=== PATIENT | female | born 1950 | race Caucasian/White ===

== ENCOUNTER 2021-08-19 17:22 | Emergency (ER) | payer OTHER ==
[2021-08-19 18:30] LABS: Absolute Lymphocytes (CBC) 1.3 K/uL (0.7-4.9); Basophils % 0.9 % (0-1.3); Lymphocytes % 34.2 % (15.3-44.8); MPV 7.9 fL (7.6-11.3); RBC Red Blood Cell Count 4.79 M/uL (3.86-4.86)
[2021-08-19 18:32] LABS: Protime INR 1.03
[2021-08-19 18:47] LABS: Albumin 3.4 g/dL (3.4-5.0); Bilirubin Direct 0.1 mg/dL (0-0.2); Bilirubin Total 0.4 mg/dL (0.2-1.0); Potassium 3.8 mmol/L (3.5-5.1)
--- NOTE | 2021-08-19 19:23 | RAD REPORT ---
EXAM DESCRIPTION: RAD - Chest Single View - 08/19/2021 6:38 pm CLINICAL HISTORY: COUGH COMPARISON: No comparisons FINDINGS: Lines: None. Lungs: No evidence of edema or pneumonia. Pleural: No significant pleural effusions or pneumothorax. Cardiac: The heart size is within normal limits. Bones: No acute fractures. Other: IMPRESSION: No acute cardiopulmonary disease.
--- NOTE | 2021-08-19 19:45 | RAD REPORT ---
EXAM DESCRIPTION: CTAbdomen Pelvis W Contrast - 08/19/2021 7:31 pm CLINICAL HISTORY: . Abd pain;Vaginal bleeding COMPARISON: <Comparisons> TECHNIQUE: Biphasic CT imaging of the abdomen and pelvis was performed with 100 ml non-ionic IV cont rast. All CT scans are performed using dose optimization technique as appropriate and may include automated exposure control or mA/KV adjustment according to patient size. FINDINGS: Lower chest: No acute abnormality. Small hiatal hernia. Liver: No acute abnormality or suspicious lesions. Biliary: Extrahepatic biliary ductal dilatation likely related to the postcholecystectomy state. Chol ecystectomy. Stomach: No significant focal abnormality. Duodenum: No significant focal abnormality. Pancreas: No significant abnormality. Spleen: No significant abnormality. Adrenal: No suspicious lesions. Kidney/ureter: No hydronephrosis. No renal calculi. Retroperitoneum: No retroperitoneal adenopathy. Vascular: No aneurysm. Bowel: Wall thickening involving the ascending and transverse colon to about the level of the splenic flexure.. Diverticulosis. No evidence of acute diverticulitis. Peritoneum: No ascites or free air. Bladder: Trace gas within the bladder. Reproductive: No adnexal masses. Bones: No acute fracture. Other: n/a IMPRESSION: Colitis involving the ascending and transverse colon. No bowel obstruction. The differen tial includes infectious and inflammatory etiologies primarily. Trace bladder gas may be from instrumentation or infection. Correlate with urinalysis.
[2021-08-19] MEDS ORDERED: NA CHLORIDE 0.9% 100 ML ONE (21:55)
[2021-08-19] MEDS ORDERED: CIPROFLOXACIN 400mg IV 400 MG/200 ML BAG IV ONE (21:55)
[2021-08-19] MEDS ORDERED: CIPROFLOXACIN HCL 500 MG TAB ONE (22:00)
[2021-08-19] MEDS ORDERED: METRONIDAZOLE 500mg IVPB 500 MG/100 ML BAG IV ONE (22:00)
--- NOTE | 2021-08-19 23:49 | EDPHYS ---
Physician Documentation [facility] Name: Binh Lau Age: 71 yrs Sex: Female : 1950 Arrival Date: 08/19/2021 Time: 17:33 Bed 4 Private MD: ED Physician Burke Olmedo HPI: 08/19 18:09 This 71 yrs old Female presents to ER via Ambulatory with complaints of pm1 Cough, Vaginal Bleeding. 18:09 The patient or guardian reports cough, with no sputum. Onset: The symptoms/episode pm1 began/occurred 6 day(s) ago. Severity of symptoms: in the emergency department the symptoms are unchanged. Modifying factors: The symptoms are alleviated by nothing, the symptoms are aggravated by nothing. Associated signs and symptoms: Pertinent positives: Body aches. Vaginal bleeding for the past 3 weeks, Pertinent negatives: fever. The patient has not experienced similar symptoms in the past. The patient has not recently seen a physician. Patient present in the ER with her for cough and body aches. Patient received 2 doses of covid vaccination. Historical: - Allergies: 17:48 No Known Allergies; hb - Immunization history:: Client reports receiving the 2nd dose of the Covid vaccine. - Social history:: Smoking status: Patient denies any tobacco usage or history of. ROS: 18:09 Eyes: Negative for injury, pain, redness, and discharge, ENT: Negative for injury, pm1 pain, and discharge, Cardiovascular: Negative for chest pain, palpitations, and edema. 18:09 Abdomen/GI: Negative for abdominal pain, nausea, vomiting, diarrhea, and constipation, Back: Negative for injury and pain. 18:09 MS/Extremity: Negative for injury and deformity, Skin: Negative for injury, rash, and discoloration, Neuro: Negative for headache, weakness, numbness, tingling, and seizure. 18:09 Constitutional: Positive for body aches, Negative for poor PO intake. 18:09 Respiratory: Positive for cough, Negative for shortness of breath. 18:09 : Positive for vaginal bleeding, Negative for urinary symptoms. 18:09 All other systems are negative. Exam: 18:09 Constitutional: This is a well developed, well nourished patient who is awake, alert, pm1 and in no acute distress. Head/Face: Normocephalic, atraumatic. 18:09 Back: No spinal tenderness. No costovertebral tenderness. Full range of motion. Skin: Warm, dry with normal turgor. Normal color with no rashes, no lesions, and no evidence of cellulitis. MS/ Extremity: Pulses equal, no cyanosis. Neurovascular intact. Full, normal range of motion. 18:09 Cardiovascular: Exam negative for acute changes, Rate: normal, Rhythm: regular, Pulses: no pulse deficits are appreciated. 18:09 Respiratory: Exam negative for acute changes, respiratory distress, shortness of breath, Breath sounds: are clear throughout. 18:09 Abdomen/GI: Inspection: abdomen appears normal, Palpation: soft, in all quadrants, mild abdominal tenderness, in the left lower quadrant. 18:09 Neuro: Exam negative for acute changes, Orientation: is normal, Mentation: is normal, Motor: is normal, moves all fours. 23:46 : Pelvic Exam: External exam: discharge, is not appreciated, Shireen RN. Patient with pm1 mild vaginal bleeding present. Vital Signs: 17:47 BP 149 / 98; Pulse 88; Resp 20; Temp 98.5(O); Pulse Ox 97% on R/A; Weight 66.68 kg; hb Height 5 ft. 3 in. (160.02 cm); Pain 3/10; 19:45 BP 146 / 72; Pulse 68; Resp 17; Temp 98.1; Pulse Ox 100% on R/A; Pain 0/10; dc2 21:45 BP 137 / 87; Pulse 81; Resp 17; Temp 97.6; Pulse Ox 99% ; Pain 0/10; dc2 22:30 BP 126 / 73; Pulse 72; Resp 18; Temp 97.9; Pulse Ox 99% ; Pain 0/10; dc2 08/20 00:00 BP 121 / 66; Pulse 69; Resp 16; Pulse Ox 95% ; Pain 0/10; dc2 00:30 BP 116 / 75; Pulse 66; Resp 16; Temp 97.8(O); Pulse Ox 95% ; Pain 0/10; dc2 01:00 BP 116 / 69; Pulse 64; Resp 17; Pulse Ox 94% ; Pain 0/10; dc2 01:30 BP 103 / 65; Pulse 62; Resp 16; Pulse Ox 99% ; Pain 0/10; dc2 08/19 17:47 Body Mass Index 26.04 (66.68 kg, 160.02 cm) hb MDM: 08/19 18:00 Patient medically screened. pm1 22:23 Data reviewed: vital signs. Data interpreted: Pulse oximetry: on room air is 100 %. pm1 Interpretation: normal. Counseling: I had a detailed discussion with the patient and/or guardian regarding: the historical points, exam findings, and any diagnostic results supporting the discharge/admit diagnosis, lab results, radiology results, the need for outpatient follow up, to return to the emergency department if symptoms worsen or persist or if there are any questions or concerns that arise at home. 08/19 18:02 Order name: COVID-19 : Document "Date of Symptom Onset" if Symptomatic. pm1 08/19 18:02 Order name: Basic Metabolic Panel pm1 08/19 18:02 Order name: CBC with Diff pm1 08/19 18:02 Order name: Hepatic Function pm1 08/19 18:02 Order name: Lipase pm1 08/19 18:02 Order name: PT-INR; Complete Time: 18:55 pm1 08/19 18:04 Order name: Basic Metabolic Panel; Complete Time: 18:55 EDMS 08/19 18:04 Order name: CBC with Automated Diff; Complete Time: 18:55 EDMS 08/19 18:04 Order name: Liver (Hepatic) Function; Complete Time: 18:55 EDMS 08/19 18:04 Order name: Lipase; Complete Time: 18:55 EDMS 08/19 18:06 Order name: Flu; Complete Time: 19:48 pm1 08/19 18:06 Order name: Strep; Complete Time: 19:40 pm1 08/19 18:02 Order name: Chest Single View XRAY; Complete Time: 19:40 pm1 08/19 18:02 Order name: IV Saline Lock; Complete Time: 18:03 pm1 08/19 18:02 Order name: Labs collected and sent; Complete Time: 18:03 pm1 08/19 18:02 Order name: CT Abd/Pelvis - IV Contrast Only; Complete Time: 19:48 pm1 08/19 19:35 Order name: Throat Culture EDMS 08/19 20:10 Order name: SARS-COV-2 RT PCR; Complete Time: 20:21 EDMS Administered Medications: 21:36 Drug: Flagyl (metroNIDAZOLE) 500 mg Volume: 100 ml; Route: IVPB; Rate: 200 ml/hr; dc2 Infused Over: 30 mins; Site: left antecubital; 22:06 Follow up: IV Status: Completed infusion; IV Intake: 100ml dc2 21:36 Drug: Cipro (ciprofloxacin) 500 mg Route: PO; dc2 22:00 Follow up: Response: No adverse reaction dc2 08/20 00:20 Drug: REGEN-COV Dose Pack 120 mg/mL-120 mg/mL (EUA) 600 mg Route: IV; Rate: calculated cw2 rate; Site: right antecubital; 01:25 Follow up: IV Status: Completed infusion; IV Intake: 250ml dc2 Disposition: 07:03 Co-signature as Attending Physician, Burke Olmedo MD I agree with the assessment and rn plan of care. Attestation: The patient's history, exam findings, diagnostics, and a summary of any interventions or procedures was reviewed in detail with Mauro Martinez NP. Disposition Summary: 08/19/21 23:49 Discharge Ordered Location: Home pm1 Problem: new pm1 Symptoms: have improved pm1 Condition: Stable pm1 Diagnosis - Abnormal uterine and vaginal bleeding, unspecified pm1 - Coronavirus infection, unspecified pm1 Followup: pm1 - With: Emergency Department - When: As needed - Reason: Worsening of condition Followup: pm1 - With: Private Physician - When: 2 - 3 days - Reason: Recheck today's complaints, Continuance of care, Re-evaluation by your physician Discharge Instructions: - Discharge Summary Sheet pm1 - Abnormal Uterine Bleeding pm1 - COVID-19 pm1 - COVID-19 Frequently Asked Questions pm1 - 10 Things You Can Do to Manage Your COVID-19 Symptoms at Home - [facility] pm1 - COVID-19: Quarantine vs. Isolation - [facility] pm1 Forms: - Medication Reconciliation Form pm1 - Thank You Letter pm1 - Antibiotic Education pm1 - Prescription Opioid Use pm1 Signatures: Dispatcher [employer] EDMS Burke Olmedo MD MD rn Marinas, Patrick, NP COMMUNITY SUPPORT ASSOCIATE pm1 Jeanne Da Silva RN RN Shireen Valle RN RN dc2 Abdirahman Liang RN RN cw2 Corrections: (The following items were deleted from the chart) 08/19 19:19 18:04 CORONAVIRUS ordered. EDMS EDMS
--- NOTE | 2021-08-19 23:49 | ER ---
Nurse's Notes [facility] Name: Binh Lau Age: 71 yrs Sex: Female : 1950 Arrival Date: 08/19/2021 Time: 17:33 Bed 4 Private MD: Diagnosis: Abnormal uterine and vaginal bleeding, unspecified;Coronavirus infection, unspecified Presentation: 08/19 17:47 Chief complaint: Productive cough, pain with cough, fatigue, and vaginal bleeding x 1 hb week. Coronavirus screen: Client presents with at least one sign or symptom that may indicate coronavirus-19. Standard/surgical mask placed on the client. Provider contacted for isolation considerations. Ebola Screen: No symptoms or risks identified at this time. Initial Sepsis Screen: Does the patient meet any 2 criteria? No. Patient's initial sepsis screen is negative. Does the patient have a suspected source of infection? No. Patient's initial sepsis screen is negative. Risk Assessment: Do you want to hurt yourself or someone else? Patient reports no desire to harm self or others. Onset of symptoms was August 12, 2021. 17:47 Method Of Arrival: Ambulatory hb 17:47 Acuity: SAADIA 3 hb Historical: - Allergies: 17:48 No Known Allergies; hb - Immunization history:: Client reports receiving the 2nd dose of the Covid vaccine. - Social history:: Smoking status: Patient denies any tobacco usage or history of. Screenin:26 Abuse screen: Denies threats or abuse. Nutritional screening: No deficits noted. ap3 Tuberculosis screening: No symptoms or risk factors identified. Fall Risk None identified. Assessment: 18:24 General: Appears in no apparent distress. Behavior is calm, cooperative. Pain: Denies ap3 pain. Neuro: Level of Consciousness is awake, alert, obeys commands, Oriented to person, place, time, situation, Moves all extremities. Gait is steady, Speech is normal. Cardiovascular: Capillary refill < 3 seconds. Respiratory: Reports cough that is productive, pain with cough Breath sounds with crackles in right upper lobe and left upper lobe. GI: Abdomen is non-distended. : Reports vaginal bleeding that is bright red, moderate flow, Denies pain. Musculoskeletal: Reports body aches. 19:15 Reassessment: Pt leave for CT scan via wheelchair. dc2 19:50 Reassessment: Pt ambulate to bathroom with steady gait and has urine cup for specimen. dc2 21:20 Reassessment: Pt states she hasn't eaten and would also like a sandwich. A sandwich and dc2 juice provided. Pt still co being very cold, temp 97.8 and have checked multiple times. Warm blanket provided with meal. No further needs at this time, call light within reach, at side . 08/20 00:25 Reassessment: Patient and/or family updated on plan of care and expected duration. Pain dc2 level reassessed. Infusion completed, pt and family instruct on monitoring for next hour and if no complications will be discharged to home. Pt tolerate well, vss. Conitnue to monitor. Vital Signs: 08/19 17:47 BP 149 / 98; Pulse 88; Resp 20; Temp 98.5(O); Pulse Ox 97% on R/A; Weight 66.68 kg; hb Height 5 ft. 3 in. (160.02 cm); Pain 3/10; 19:45 BP 146 / 72; Pulse 68; Resp 17; Temp 98.1; Pulse Ox 100% on R/A; Pain 0/10; dc2 21:45 BP 137 / 87; Pulse 81; Resp 17; Temp 97.6; Pulse Ox 99% ; Pain 0/10; dc2 22:30 BP 126 / 73; Pulse 72; Resp 18; Temp 97.9; Pulse Ox 99% ; Pain 0/10; dc2 08/20 00:00 BP 121 / 66; Pulse 69; Resp 16; Pulse Ox 95% ; Pain 0/10; dc2 00:30 BP 116 / 75; Pulse 66; Resp 16; Temp 97.8(O); Pulse Ox 95% ; Pain 0/10; dc2 01:00 BP 116 / 69; Pulse 64; Resp 17; Pulse Ox 94% ; Pain 0/10; dc2 01:30 BP 103 / 65; Pulse 62; Resp 16; Pulse Ox 99% ; Pain 0/10; dc2 08/19 17:47 Body Mass Index 26.04 (66.68 kg, 160.02 cm) hb ED Course: 08/19 17:33 Patient arrived in ED. mr 17:48 Triage completed. hb 17:48 Arm band placed on. hb 17:52 Mauro Martinez NP is PHCP. pm1 17:52 Burke Olmedo MD is Attending Physician. pm1 18:23 Nalini Shirley, SATHYA is Primary Nurse. ll1 18:23 Inserted saline lock: 22 gauge in right antecubital area, using aseptic technique. ll1 Blood collected. 18:26 Patient has correct armband on for positive identification. Bed in low position. Call ap3 light in reach. Side rails up X2. Adult w/ patient. Pulse ox on. NIBP on. Door closed. Noise minimized. 18:37 Chest Single View XRAY In Process Unspecified. EDMS 19:[address] via wheelchair. dc2 19:30 CT Abd/Pelvis - IV Contrast Only In Process Unspecified. EDMS 19:42 Patient moved back from CT. dc2 19:59 Primary Nurse role handed off by Nalini Shirley, SATHYA tt3 20:13 Shireen Valle RN is Primary Nurse. dc2 22:00 Patient has correct armband on for positive identification. Bed in low position. Call dc2 light in reach. Side rails up X 1. 08/20 00:00 cardiac monitor technician on. Pulse ox on. NIBP on. dc2 00:00 Door closed. Warm blanket given. dc2 Administered Medications: 08/19 21:36 Drug: Flagyl (metroNIDAZOLE) 500 mg Volume: 100 ml; Route: IVPB; Rate: 200 ml/hr; dc2 Infused Over: 30 mins; Site: left antecubital; 22:06 Follow up: IV Status: Completed infusion; IV Intake: 100ml dc2 21:36 Drug: Cipro (ciprofloxacin) 500 mg Route: PO; dc2 22:00 Follow up: Response: No adverse reaction dc2 08/20 00:20 Drug: REGEN-COV Dose Pack 120 mg/mL-120 mg/mL (EUA) 600 mg Route: IV; Rate: calculated cw2 rate; Site: right antecubital; 01:25 Follow up: IV Status: Completed infusion; IV Intake: 250ml dc2 Intake: 08/19 22:06 IV: 100ml; Total: 100ml. dc2 08/20 01:25 IV: 250ml; Total: 350ml. dc2 Outcome: 08/19 23:49 Discharge ordered by . pm1 08/20 02:13 Patient left the ED. cw2 Signatures: Dispatcher [employer] EDTX Ramirez, Shantal mr Michelle, Mauro, DIGITAL ACCOUNT DIRECTOR DIGITAL ACCOUNT DIRECTOR pm1 Jeanne Da Silva, RN RN Yoselin Anand RN RN ap3 Nalini Shirley RN RN ll1 Yayo Burk tt3 Shireen Valle RN RN dc2 Abdirahman Liang RN RN cw2 Corrections: (The following items were deleted from the chart) 08/19 18:24 18:24 General: chito 1
[2021-08-20] MEDS ORDERED: NA CHLORIDE 0.9% 250 ML ONE (00:09)
[2021-08-20] MEDS ORDERED: CASIRIVIMAB/IMDEVIMAB 10 ML VIAL ONE (00:09)
[2021-08-20 02:27] VITALS: TEMP 97.8
[2021-08-20 02:29] VITALS: BP 103/65; O2SAT 99
== END 2021-08-20 02:13 | disposition home or self-care (01) ==
LOC: ER 17:22
DX: U07.1 COVID-19 (principal); N93.9 Abnormal uterine and vaginal bleeding, unspecified
CPT/HCPCS: 96365; 96367; 87070; 85025; 80048; 36415; 85610; 80076; 87081; 83690; 87804 ×2; 74177; 71045; 99285; U0003; Q9967; J0744

== ENCOUNTER → 2023-11-14 | Emergency (ER) | payer OTHER ==
[~2023-11-14] MED LIST: DIAZEPAM 10 MG/2 ML INJ SYRINGE ONE
--- OUTSIDE RECORDS SUMMARY | 2023-11-14 18:29 | XMS REPORT | Clinical Summary ---
Author Name Unknown Organization [facility] Address [address] [place] [address] Care Team Providers Care Electrical Prospector Name Role Phone Kurt Ross MD Primary Care Provider [phone] Nan Castro MD Unavailable [phone] Allergies No known active allergies Medications Medication Sig Dispensed Refills Start Date End Date Status miSOPROStol (Cytotec) 100 mcg tabletIndications:P ostmenopausal bleeding Take 1 tablet by mouth the night before appointment with Dr. Ross and 1 tablet by mouth the morning of appointment with Dr. Ross. 2 tablet 0 09/02/2021 Active memantine (Namenda) 10 mg tablet Namenda 10 mg tablet Take 1 tablet twice a day by oral route for 90 days. 0 Active buPROPion (WELLBUTRIN XL) 150 mg 24 hr tablet bupropion HCl XL 150 mg 24 hr tablet, extended release Take 1 tablet by mouth once daily 0 Active donepezil (ARICEPT) 10 mg tablet donepezil 10 mg tablet Take 1 tablet by mouth once daily for 90 days 0 Active thyroid (DINING ROOM COORDINATOR Thyroid) 60 mg tablet DINING ROOM COORDINATOR Thyroid 60 mg tablet TAKE 1 TABLET BY MOUTH EVERY MORNING 0 Active meclizine (ANTIVERT) 25 mg tablet meclizine 25 mg tablet Take 1 tablet 3 times a day by oral route for 10 days. 0 Active folic acid/multivit-min/l utein (CENTRUM SILVER ORAL) Take by mouth. 0 Active ferrous sulfate (SLOW FE ORAL) Take by mouth. 0 Active glucosamine-chondro itin 500-400 mg tablet Take 1 tablet by mouth 3 (three) times a day. 0 Active cholecalciferol, vitamin D3, 10 mcg (400 units) tablet Take 1,000 Units by mouth. 0 Active magnesium 30 mg tablet Take 250 mg by mouth daily. 0 Active b complex vitamins tablet Take 1 tablet by mouth daily. 0 Active ascorbic acid, vitamin C, (vitamin C) 1000 mg tablet Take 1,000 mg by mouth daily. 0 Active Surgical History Surgery Date Site/Laterality Comments TONSILLECTOMY Medical History Medical History Date Comments Dementia due to Alzheimer's disease 2015 Swallowing problem prior to 2013 scalded throa t Family History Medical History Relation Name Comments -Unknown cancer Father Relation Name Status Comments Father Social History Tobacco Use Types Packs/Day Years Used Date Smoking Tobacco: Never Smokeless Tobacco: Never Alcohol Use Standard Drinks/Week Comments Never 0 (1 standard drink = 0.6 oz pur e alcohol) Sex and Gender Information Value Date Recorded Sex Assigned at Not on file Gender Identity Not on file Sexual Orientation Not on file Job Start Date Occupation Industry Not on file Not on file Not on file Obstetrics History Para Term AB IAB SAB Ectopic Multiple Livin g Live Births 3 3 3 Date Outcome GA Total Labor Labor//3rd Weight Sex Delivery Anes PTL Gloria A1 A5 Name Cl in Para Para Para Comments Menarche: Last PAP: Parity:24 HRT: OCP: Menopause:Natural Fertility Tx: Breastfeed: Plan of Treatment Health Maintenance Due Date Last Done Comments COVID-19 Vaccination ( season) 2023 03/01/2021, 02/08/2021 Care Teams Electrical Prospector Relationship Specialty Start Date End Date Kurt Ross MD [address] [place] [address] PCP - General Gynecological Oncology 08/29/21 Nan Castro MD [address] [facility] [address] [place] [address] PCP - External Primary Care Provider Internal Medicine 09/12/21
--- NOTE | 2023-11-14 19:55 | RAD REPORT ---
EXAM DESCRIPTION: Chelsie Single View11/14/2023 7:40 pm CLINICAL HISTORY: Cough COMPARISON: 2020 FINDINGS: The lungs appear clear of acute infiltrate. The heart is normal size IMPRESSION: No acute abnormalities displayed
--- NOTE | 2023-11-14 19:57 | RAD REPORT ---
EXAM DESCRIPTION: RAD - Pelvis - 11/14/2023 7:40 pm CLINICAL HISTORY: Pelvic pain status post injury FINDINGS: No fracture or dislocation is seen. If the patient continues to have symptoms to suggest an occult fracture then MRI would be recommended
--- NOTE | 2023-11-14 20:00 | RAD REPORT ---
EXAM DESCRIPTION: CT - Head Brain Wo Cont - 11/14/2023 7:48 pm CLINICAL HISTORY: Alteration of awareness/confusion. Dementia. Head injury COMPARISON: None TECHNIQUE: Computed axial tomography of the head was obtained. IV contrast was not requested. All CT scans are performed using dose optimization technique as appropriate and may include automated exposure control or mA/KV adjustment according to patient size. FINDINGS: An intracranial bleed is not seen The ventricles are normal in caliber No extra-axial fluid collection is noted. Moderate cerebral atrophy. No significant hypodensity within the brain Fluid within the sinuses/ mastoids is not seen. IMPRESSION: No acute intracranial abnormality is seen If patient's symptoms persist MRI of the brain would be recommended
[2023-11-14 20:18] LABS: Absolute Lymphocytes (CBC) 1.4 K/uL (0.7-4.9); Hematocrit 31.8 % (36.0-45.0); Lymphocytes % 12.7 % (15.3-44.8); MCV 74.9 fL (80-100); MPV 8.4 fL (7.6-11.3); Platelets 323 thou/uL (152-406); RBC Red Blood Cell Count 4.25 M/uL (3.86-4.86)
[2023-11-14 20:38] LABS: Potassium 3.9 mEq/L (3.5-5.1); Troponin High Sensitivity 8.2 pg/mL (<58.9)
[2023-11-14 21:59] LABS: Urine Bacteria None Seen /HPF (<20); Urine Bilirubin NEGATIVE (Negative); Urine Blood Negative (Negative); Urine Clarity Clear (Clear); Urine Color Yellow (Yellow); Urine Glucose NEGATIVE (Negative); Urine Mucus Slight /HPF (None Seen); Urine Protein TRACE (Negative); Urine RBC None Seen /HPF (None Seen); Urine Urobilinogen Normal (Normal); Urine pH 5.5 (5.0-7.0)
--- NOTE | 2023-11-14 22:08 | EDPHYS ---
Physician Documentation [facility] Name: Binh Lau Age: 73 yrs Sex: Female : 1950 Arrival Date: 11/14/2023 Time: 18:22 Bed 13 Private MD: ED Physician Emerson Russell HPI: 11/14 19:11 This 73 yrs old Female presents to ER via EMS with complaints of weakness. ec2 19:11 Patient arrives today for evaluation for generalized weakness. Patient with history of ec2 advanced dementia, has been having generalized weakness, decreased p.o. intake, no nausea or vomiting. No cough or cold symptoms, no complaints of urinary problems. Patient's communication is limited due to her advanced dementia. reports she did have a fall today, no head strike, no LOC, no blood thinners.. Historical: - Allergies: 18:40 No Known Allergies; ko1 - PMHx: 18:40 Alzheimer's disease; ko1 - Immunization history:: Adult Immunizations up to date. - Social history:: Smoking status: Patient denies any tobacco usage or history of. ROS: 19:11 Constitutional: as per hpi ec2 Exam: 19:11 Constitutional: GEN: NAD Head: atraumatic Eyes: EOMI Ears: External ears are ec2 normal. CV: regular rate LUNGS: no respiratory distress ABD: non-distended SKIN: no evidence of rashes MSK: no evidence of trauma NEURO: moves all extremities equally Vital Signs: 18:38 BP 126 / 78; Pulse 72; Resp 15; Temp 98; Pulse Ox 100% ; Weight 68.04 kg; Height 5 ft. ko1 3 in. ; 18:40 BP 138 / 75; Pulse 65; Resp 16; Pulse Ox 98% ; ko1 19:37 BP 112 / 92; Pulse 72; Resp 20; Pulse Ox 100% on R/A; la4 21:45 BP 121 / 77; Pulse 84; Resp 20; Pulse Ox 98% on 2 lpm NC; la4 18:38 Body Mass Index 26.57 (68.04 kg, 160.02 cm) ko1 21:45 after valium, pt resting well w/ no distress noted. Placed on O2 for support after la4 medication [place] Coma Score: 19:37 Eye Response: spontaneous(4). Motor Response: obeys commands(6). Verbal Response: la4 confused(4). Total: 14. MDM: 19:04 Patient medically screened. ec2 19:11 Data reviewed: vital signs. ED course: Patient arrives today for evaluation of ec2 generalized weakness. Examination remarkable for well-appearing nontoxic individual is otherwise in no acute distress with reassuring vital signs and equal strength in all 4 extremities. Will obtain lab work, CT imaging, chest x-ray, urine studies. Currently considering process such as dehydration, UTI, lower suspicion for intracranial brain bleed, lower suspicion for ACS. . 19:30 ED course: EKG independently reviewed and interpreted by me, shows normal sinus rhythm, ec2 rate of 63, no acute ST segment elevations, intervals are nonconcerning. Does have nonspecific T wave inversions noted in the anterior leads.. 20:01 ED course: Chest x-ray, pelvis x-ray, CT scan of the head showed no acute pathology. ec2 Pending lab work. . 20:53 ED course: Metabolic profile with appropriate electrolytes, diminished renal function ec2 with a GFR 58. CBC is reassuring, slight anemia noted. Troponin within normal ranges. . 22:00 ED course: Urine is noninfectious appearing. On reassessment patient did have some ec2 agitation and attempting to climb out of bed, subsequently did give her benzodiazepines.. 22:06 ED course: I updated the at the bedside given the patient's general status, I ec2 offered them inpatient admission given the patient's progression and general weakness and fall risk, I stated the goal would be placement and likely senior care placement given her dementia and general weakness, was not ready to proceed in that direction at this time and did not want to be admitted. He will be taking her home today.. 11/14 19:05 Order name: Basic Metabolic Panel; Complete Time: 20:53 ec2 11/14 19:05 Order name: CBC with Diff; Complete Time: 20:53 ec2 11/14 19:05 Order name: Troponin HS; Complete Time: 20:53 ec2 11/14 19:05 Order name: UAM; Complete Time: 22:00 ec2 11/14 19:05 Order name: XRAY Chest (1 view); Complete Time: 20:01 ec2 11/14 19:11 Order name: Pelvis XRAY; Complete Time: 20:01 ec2 12/30 19:11 Order name: CT Head Brain wo Cont; Complete Time: 20:01 ec2 11/14 19:05 Order name: EKG; Complete Time: 19:06 ec2 11/14 19:05 Order name: Cardiac monitoring; Complete Time: 19:29 ec2 11/14 19:05 Order name: EKG - Nurse/Tech; Complete Time: 19:29 ec2 11/14 19:05 Order name: IV Saline Lock; Complete Time: 22:02 ec2 11/14 19:05 Order name: Labs collected and sent; Complete Time: 22:02 ec2 11/14 19:05 Order name: O2 Per Protocol; Complete Time: :29 ec2 11/14 19:05 Order name: O2 Sat Monitoring; Complete Time: : ec2 11/14 20:53 Order name: Cath; Complete Time: 22:02 ec2 Administered Medications: 21:48 Drug: Diazepam IVP 5 mg IVP once Route: IVP; Site: right forearm; la4 Disposition Summary: 11/14/23 22:07 Discharge Ordered Condition: Stable ec2 Diagnosis - Weakness ec2 - Unspecified dementia with behavioral disturbance ec2 Followup: ec2 - With: Private Physician - When: - Reason: Re-evaluation by your physician Discharge Instructions: - Discharge Summary Sheet ec2 - Dementia ec2 Forms: - Medication Reconciliation Form ec2 - Thank You Letter ec2 - Antibiotic Education ec2 - Prescription Opioid Use ec2 - Patient Portal Instructions ec2 - Leadership Thank You Letter ec2 Signatures: Dispatcher [employer] Addie Prasad RN RN ko1 Emerson Russell MD MD ec2 Jatinder Rogers RN RN la4
--- NOTE | 2023-11-14 22:08 | ER ---
Nurse's Notes [facility] Name: Binh Lau Age: 73 yrs Sex: Female : 1950 Arrival Date: 11/14/2023 Time: 18:22 Bed 13 Private MD: Diagnosis: Weakness;Unspecified dementia with behavioral disturbance Presentation: 11/14 18:38 Chief complaint: EMS states: called due to patient not eating or taking her ko1 meds for the past two days, she has advanced Alzheimer's and appears weaker than usual. Coronavirus screen: At this time, the client does not indicate any symptoms associated with coronavirus-19. Ebola Screen: No symptoms or risks identified at this time. Initial Sepsis Screen: Does the patient meet any 2 criteria? No. Patient's initial sepsis screen is negative. Does the patient have a suspected source of infection? No. Patient's initial sepsis screen is negative. Risk Assessment: Do you want to hurt yourself or someone else? Patient reports no desire to harm self or others. Onset of symptoms is unknown. 18:38 Method Of Arrival: EMS: [email or web address] ko1 18:38 Acuity: SAADIA 3 ko1 Triage Assessment: 18:40 General: Appears in no apparent distress. comfortable, Behavior is calm, cooperative, ko1 appropriate for age. Pain: Denies pain. Historical: - Allergies: 18:40 No Known Allergies; ko1 - PMHx: 18:40 Alzheimer's disease; ko1 - Immunization history:: Adult Immunizations up to date. - Social history:: Smoking status: Patient denies any tobacco usage or history of. Screenin:40 [facility] ED Fall Risk Assessment (Adult) History of falling in the last 3 months, ko1 including since admission No falls in past 3 months (0 pts) Confusion or Disorientation Yes (5 pts) Intoxicated or Sedated No (0 pts) Impaired Gait Yes (1 pt) Mobility Assist Device Used No (0 pt) Altered Elimination No (0 pt) Score/Fall Risk Level 3 or more points = High Risk Oriented to surroundings, Maintained a safe environment, Educated pt \T\ family on fall prevention, incl call for assistance when getting out of bed, Assessed \T\ reinforced patient's understanding of fall precautions, Provided non-skid footwear, Hourly rounding (assess needs \T\ fall precautionary measures) done, Used ambulatory aids as needed (educated on \T\ assisted with), Used gait belt as appropriate Remained w/in arm's length of patient and in sight while toileting, Offered frequent toileting (1:1 observation), Remained with patient while ambulating, Utilized family, sitter, or virtual carpenter cradle and dolly as indicated. Abuse screen: Denies threats or abuse. Denies injuries from another. Nutritional screening: decreased appetite/intake. Tuberculosis screening: No symptoms or risk factors identified. Assessment: 18:40 Neuro: Level of Consciousness is awake, alert, obeys commands, confused, Oriented to ko1 person, Nut Threader are equal bilaterally Moves all extremities. Speech is normal, Facial symmetry appears normal, Pupils are PERRLA, Pupil Size: 3mm Intact. Cardiovascular: No deficits noted. Respiratory: No deficits noted. GI: Parent/caregiver reports the patient having decreased intake. : No deficits noted. EENT: No deficits noted. Derm: No deficits noted. Musculoskeletal: Parent/caregiver report the patient having weakness in generalized. 19:37 General: Appears in no apparent distress. Behavior is calm, cooperative, appropriate la4 for age. Pain: Denies pain. 19:37 Neuro: Level of Consciousness is alert, obeys commands, confused, Oriented to person, la4 place. Cardiovascular: No deficits noted. Heart tones S1 S2. Respiratory: No deficits noted. Airway is patent Respiratory effort is even, unlabored, Respiratory pattern is regular, symmetrical. GI: No deficits noted. Abdomen is round non-distended, Bowel sounds present X 4 quads. Abd is soft and non tender X 4 quads. Abd is non tender X 4 quads. Vital Signs: 18:38 BP 126 / 78; Pulse 72; Resp 15; Temp 98; Pulse Ox 100% ; Weight 68.04 kg; Height 5 ft. ko1 3 in. ; 18:40 BP 138 / 75; Pulse 65; Resp 16; Pulse Ox 98% ; ko1 19:37 BP 112 / 92; Pulse 72; Resp 20; Pulse Ox 100% on R/A; la4 21:45 BP 121 / 77; Pulse 84; Resp 20; Pulse Ox 98% on 2 lpm NC; la4 18:38 Body Mass Index 26.57 (68.04 kg, 160.02 cm) ko1 21:45 after valium, pt resting well w/ no distress noted. Placed on O2 for support after la4 medication [place] Coma Score: 19:37 Eye Response: spontaneous(4). Motor Response: obeys commands(6). Verbal Response: la4 confused(4). Total: 14. ED Course: 18:37 Patient arrived in ED. ko1 18:40 Triage completed. ko1 18:40 Arm band placed on right wrist. Patient placed in an exam room, on a stretcher, on ko1 production designer, on pulse oximetry, Patient notified of wait time. 18:40 Patient has correct armband on for positive identification. Bed in low position. Call ko1 light in reach. Side rails up X2. Adult w/ patient. Client placed on continuous cardiac and pulse oximetry monitoring. NIBP monitoring applied. greenhouse transplanter on. Door closed. Noise minimized. Lights dimmed. 19:03 Emerson Russell MD is Attending Physician. ec2 19:17 Jatinder Rogers RN is Primary Nurse. la4 19:37 Provided Education on: Plan of care. la4 19:37 Client placed on continuous cardiac and pulse oximetry monitoring. NIBP monitoring la4 applied. 19:37 Inserted saline lock: 20 gauge in right forearm, using aseptic technique. la4 19:42 XRAY Chest (1 view) In Process Unspecified. EDMS 19:42 Pelvis XRAY In Process Unspecified. EDMS 19:49 CT Head Brain wo Cont In Process Unspecified. EDMS 22:00 Awaiting lab results. la4 22:00 Oxygen administration via nasal cannula \T\ 2L/min. la4 22:00 No provider procedures requiring assistance completed. IV is patent, is intact, with la4 good blood return, Flushed right forearm saline lock with 5 ml normal saline. Oxygen administration via nasal cannula \T\ 2L/min Response to oxygen therapy: oxygen given for support after medication administration. 22:30 IV discontinued, intact, bleeding controlled, No redness/swelling at site. Pressure pf1 dressing applied. Administered Medications: 21:48 Drug: Diazepam IVP 5 mg IVP once Route: IVP; Site: right forearm; la4 Medication: 19:37 VIS not applicable for this client. la4 Outcome: 22:07 Discharge ordered by . ec2 22:30 Discharged to home via wheelchair, with family, pf1 22:30 Condition: improved pf1 22:30 Discharge instructions given to patient, family, Instructed on discharge instructions, follow up and referral plans. Demonstrated understanding of instructions, follow-up care, 23:36 Patient left the ED. pf1 Signatures: Dispatcher [employer] Addie Prasad RN RN ko1 Luisa Cruz RN RN pf1 Emerson Russell MD MD ec2 Jatinder Rogers RN RN la4
[2023-11-15 01:34] VITALS: TEMP 98
[2023-11-15 01:59] VITALS: BP 121/77; O2SAT 98
== END ==
LOC: ER 18:22
DX: R53.1 Weakness (principal); G30.9 Alzheimer's disease, unspecified; F02.818 Dementia in other diseases classified elsewhere, unspecified severity, with other behavioral disturbance
CPT/HCPCS: 93005 ×2; 85025; 81001; 80048; 36415; 84484; 70450; 71045; 72170; 96374; 99285; J3360